=== PATIENT | female | born 1955 | race African-American/Black ===

== ENCOUNTER 2018-12-03 06:50 | Emergency (ER) | payer OTHER ==
[~2018-12-03] VITALS: Ht 160 cm; Wt 87.1 kg
== END 2018-12-03 13:56 | disposition home or self-care (01) ==
LOC: ER 06:50
DX: R53.1 Weakness (principal); D69.6 Thrombocytopenia, unspecified; K81.1 Chronic cholecystitis

== ENCOUNTER → 2018-12-19 | Outpatient (CLI) | payer OTHER | END | disposition home or self-care (01) | LOC: NUCLEAR 08:43 | DX: K81.1 Chronic cholecystitis (principal) | CPT/HCPCS: 78227; A9537 ==

== ENCOUNTER 2018-12-20 09:27 | Outpatient (CLI) | payer OTHER | END 2018-12-20 14:39 | disposition home or self-care (01) | LOC: MRI 09:27 | DX: E80.6 Other disorders of bilirubin metabolism (principal) | CPT/HCPCS: 74181 ==